=== PATIENT | female | born 1935 | race Caucasian/White ===

== ENCOUNTER 2018-10-28 16:50 | Emergency (ER) | payer MEDICARE, OTHER ==
[2018-10-28 16:55] VITALS: RESP 18; TEMP 98.7
[2018-10-28] MEDS ORDERED: SODIUM CHLORIDE 0.9% 1,000 ML IV STA (16:55)
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
[2018-10-28 18:13] LABS: Basophils # (A) 0.2 k/uL (0-0.2); Basophils % (A) 2 %; Eosinophils # (A) 0.2 k/uL (0-0.7); Eosinophils % (A) 2 %; HCT 42.7 % (34.0-46.0); HGB 14.3 gm/dL (11.4-16.0); Lymphocytes # (A) 1.1 k/uL (1.0-4.8); Lymphocytes % (A) 16 %; MCH 31.5 pg (25.0-35.0); MCHC 33.5 g/dL (31.0-37.0); Mean Platelet Volume 8.8; Monocytes # (A) 0.4 k/uL (0-1.0); Monocytes % (A) 5 %; Neutrophils # (A) 4.9 k/uL (1.3-7.7); Neutrophils % (A) 71 %; Platelet Count 195 k/uL (150-450); RBC 4.54 m/uL (3.80-5.40); RDW 13.6 % (11.5-15.5); WBC 6.9 k/uL (3.8-10.6)
[2018-10-28 18:15] LABS: ALT 8 U/L (9-52); AST 22 U/L (14-36); African American GFR (CKD) 76 (>60 ml/min/1.73 sqM); Albumin 4.3 g/dL (3.5-5.0); Alcohol <10 mg/dL; Alkaline Phosphatase 70 U/L (38-126); Anion Gap 13 mmol/L; Blood Urea Nitrogen 19 mg/dL (7-17); Calcium 9.3 mg/dL (8.4-10.2); Carbon Dioxide 24 mmol/L (22-30); Chloride 102 mmol/L (98-107); Creatine Kinase 62 U/L (30-135); Glucose 247 mg/dL (74-99); Sodium 139 mmol/L (137-145); Total Bilirubin 1.5 mg/dL (0.2-1.3); Total Protein 8.2 g/dL (6.3-8.2)
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
[2018-10-28 18:18] LABS: INR 1.8 (<1.2); Partial Thromboplastin Time 28.3 sec (22.0-30.0); Prothrombin Time 17.4 sec (9.0-12.0)
[2018-10-28 18:24] LABS: Potassium 3.7 mmol/L (3.5-5.1)
[2018-10-28 19:03] VITALS: BP 185/84; PULSE 71
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
== END 2018-10-28 19:12 | disposition home or self-care (01) ==
LOC: EC 16:50
DX: S09.90XA Unspecified injury of head, initial encounter (principal); E11.9 Type 2 diabetes mellitus without complications; I10 Essential (primary) hypertension; Z79.01 Long term (current) use of anticoagulants; Z79.82 Long term (current) use of aspirin; Z79.84 Long term (current) use of oral hypoglycemic drugs; Z79.899 Other long term (current) drug therapy; Z88.5 Allergy status to narcotic agent; Z95.1 Presence of aortocoronary bypass graft; V49.49XA Driver injured in collision with other motor vehicles in traffic accident, initial encounter; Y92.410 Unspecified street and highway as the place of occurrence of the external cause
CPT/HCPCS: 99285; 36415; 93005; 86900; 86901; 80053; 82550; 84484; 85025; 85610; 85730; 86850; 80320; 72125; 70450; 71260; 74177; Q9967